=== PATIENT | female | born 1945 | race Caucasian/White ===

== ENCOUNTER 2017-06-20 06:43 | Inpatient (IN) | payer MEDICARE, BC ==
[2017-06-13 09:21] LABS: ABSOLUTE BASOPHILS 0.1 thou/uL (0.0-0.2); ABSOLUTE EOSINOPHILS 0.1 thou/uL (0.0-0.7); ABSOLUTE LYMPHOCYTES 1.2 thou/uL (0.8-5.3); ABSOLUTE MONOCYTES 1.2 thou/uL (0.0-1.2); ABSOLUTE NEUTROPHILS 4.7 thou/uL (1.6-8.1); BASOPHILS 0.8 %; EOSINOPHILS 0.7 %; HEMATOCRIT 40.3 % (37.0-47.0); HEMOGLOBIN 13.2 gm/dL (12.0-15.0); LYMPHOCYTES 16.2 %; MCH 28.6 pg (26.0-34.0); MCHC 32.8 g/dL (28.0-37.0); MCV 87.2 fL (80.0-100.0); MONOCYTES 16.4 %; MPV 7.1 fl. (7.2-11.1); NUCLEATED RBCS 0 /100WBC; PLATELET COUNT* 337 thou/uL (150-400); POLYS 65.9 %; RBC 4.62 mil/uL (4.20-5.00); RDW-CV 13.5 % (10.5-14.5); WBC 7.2 thou/uL (4.0-11.0)
[2017-06-13 09:29] LABS: ALBUMIN 3.9 g/dL (3.4-5.0); CALCIUM 8.8 mg/dL (8.5-10.1); CREATININE 0.5 mg/dL (0.6-1.3); POTASSIUM 4.1 mmol/L (3.5-5.1); TOTAL BILIRUBIN 0.3 mg/dL (<0.1-1.0); TOTAL PROTEIN 7.8 g/dL (6.4-8.2)
[2017-06-13 09:49] LABS: % SATURATION 14 % (20-39); IRON 59 ug/dL (50-175)
[2017-06-13 09:50] LABS: URINE BILIRUBIN NEGATIVE (Negative); URINE BLOOD TRACE (Negative); URINE CLARITY CLEAR; URINE COLOR YELLOW; URINE GLUCOSE-RANDOM NEGATIVE (Negative); URINE KETONES NEGATIVE (Negative); URINE LEUKOCYTES-REFLEX NEGATIVE (Negative); URINE NITRITE-REFLEX NEGATIVE (Negative); URINE PROTEIN NEGATIVE (Negative); URINE SPECIFIC GRAVITY <= 1.005 (1.005-1.030); URINE UROBILINOGEN 0.2 E.U./dl (0.2-1.0)
--- NOTE | 2017-06-13 16:39 | EKG ---
[place] [address] ELECTROCARDIOGRAM REPORT Name: FIONA ALMARAZ Room: PRE IN [facility]#: [id number] Admission: Attend Phys: Tono Cervantes Discharge: Date of : 41 Report #: [id number] THIS REPORT FOR: //name// [facility] Test Date: 2017-06-13 Test Time: 09:28:09 Pat Name: FIONA ALMARAZ Department: Room: Gender: F Inspector Repairer [place]: : 1945 Requested By: Rodrigo Putnam Order Number: [id number] Reading MD: Lupillo Tapia Measurements Intervals [place] Rate: 82 P: 70 RI: 147 QRS: -27 QRSD: 100 T: 8 QT: 363 QTc: 424 Interpretive Statements Sinus rhythm Borderline left axis deviation RSR' in V1 or V2, right VCD or RVH No previous ECG available for comparison Electronically Signed On 06-13-2017 16:39:43 GAS ENGINE MECHANIC by Lupillo Tapia [email or web address] <ELECTRONICALLY SIGNED> By: Lupillo Tapia MD, [facility] 06/13/17 1639 0928 7 Lupillo Tapia MD, FACC /EPI
[~2017-06-20] VITALS: Ht 160 cm; Wt 68.0 kg
[~2017-06-20 06:43] MED LIST: ADVAIR 250-501 EACH INH; ALIGN4 MG PO; CARDIO TEA1 EACH PO; CHOLESTYRAMINE P4 GM PO; COQ-10100 MG PO; GLUCOSAMINE HC500 MG PO; LIALDA1.2 GM PO; MACULAR VITAMI1 EACH PO; MOBIC15 MG PO; NORVASC10 MG PO; OMEPRAZOLE 20 M20 M1 PO; PANTOTHENIC AC500 MG PO; PROLIA60 MG/1 ML SUBQ; SAM-E200 MG PO; THERAGRAN-M PR1 EAC1 PO; VENOFER200 MG/10 IVPB; VITAMIN B-12500 MCG PO; VITAMIN D-32000 UNIT PO; ZYRTEC10 M2 PO
[2017-07-18 07:38] VITALS: BP 155/72
[2017-07-18 12:17] VITALS: BP 149/78
--- NOTE | 2017-07-18 12:54 | NUR ---
PATIENT CAME TO THE FLOOR FROM THE PACU BY BED IN STABLE CONDITION. ADMISSION ASSESSMENT AND EDUCATION DONE WITH QUESTIONS ANSWERED FOR PATIENT AND FAMILY. HAS SOME PAIN IN SURGICAL KNEE, HEMOVAC IS DRAINING WELL. FOOT PUMPS ON AND ENRRIQUE HOSE. IV IN LEFT FOREARM WITH FLUIDS STARTED. CALL LIGHT IS IN REACH, FAMILY IS AT BEDSIDE, WILL CONTINUE TO MONITOR.
[2017-07-18 16:34] VITALS: BP 138/74
--- NOTE | 2017-07-18 16:51 | NUR ---
RECIEVED O.T. EVAL AND TX ORDERS. WILL DEFER TO P.T. AND NURSING AT THIS TIME. PLEASE ORDER FURTHER O.T. SERVICES IF NEEDED.
--- NOTE | 2017-07-18 17:36 | NUR ---
PATIENT IS ALERT AND ORIENTED TODAY VERY PLEASANT. FAMILY AT BEDSIDE TODAY SINCE COMING FROM THE OR. VITAL SIGNS STABLE ON 2 LITERS OF OXYGEN THROUGH NASAL CANNULA WITH CAPNO. SOME PAIN THAT IS MOSTLY CONTROLLED WITH ORAL PAIN MEDICATIONS. IV FLUIDS RUNNING, APPETITE IS GOOD. CALL LIGHT IS IN REACH, FAMILY IS AT BEDSIDE, WILL CONTINUE TO MONITOR.
[2017-07-19 00:20] VITALS: BP 102/45
[2017-07-19 04:27] VITALS: BP 110/52
[2017-07-19 04:52] LABS: ABSOLUTE LYMPHOCYTES 1.5 thou/uL (0.8-5.3); ABSOLUTE MONOCYTES 1.7 thou/uL (0.0-1.2); ABSOLUTE NEUTROPHILS 9.8 thou/uL (1.6-8.1); BASOPHILS 0.2 %; HEMATOCRIT 31.4 % (37.0-47.0); HEMOGLOBIN 10.4 gm/dL (12.0-15.0); LYMPHOCYTES 11.4 %; MCH 28.5 pg (26.0-34.0); MCV 86.2 fL (80.0-100.0); MPV 7.4 fl. (7.2-11.1); NUCLEATED RBCS 0 /100WBC; PLATELET COUNT* 284 thou/uL (150-400); POLYS 75.4 %; RBC 3.64 mil/uL (4.20-5.00); RDW-CV 14.3 % (10.5-14.5); WBC 12.9 thou/uL (4.0-11.0)
[2017-07-19 04:56] LABS: CALCIUM 7.4 mg/dL (8.5-10.1); CREATININE 0.6 mg/dL (0.6-1.3); POTASSIUM 3.9 mmol/L (3.5-5.1)
--- NOTE | 2017-07-19 06:47 | NUR ---
PATIENT IS ALERT AND ORIENTED X 4. VSS ON 2L 02 VIA NASAL CANNULA. PATIENT HAS HAD INCREASED PAIN WHEN MOVING LEG TO GET ON BED. PATIENT PUT ON CPM THIS AM. PAIN MEDICATION GIVEN ORDERED AND CHARTED. DRESSING TO LEFT KNEE IS C/D/I AND SCD'S, AND POLAR CARE IN PLACE. IV IN LEFT FOREARM-SL. PATIENT INSTRUCTED TO USE CALL LIGHT WHEN NEEDING ASSISTANCE. HOURLY ROUNDS MADE. WILL CONTINUE WITH PLAN OF CARE AND NURSING TO MONITOR.
[2017-07-19 10:24] VITALS: BP 138/59
--- NOTE | 2017-07-19 14:03 | NUR ---
PATIENT IS ALERT AND ORIENTED TODAY VITAL SIGNS STABLE ON ROOM AIR, FAMILY AT BEDSIDE TODAY. PAIN THAT IS SOMEWHAT CONTROLLED BY ORAL PAIN MEDICATIONS BUT HAS SOME NAUSEA WELL. CALL LIGHT IS IN REACH, BED ALARM ON, FREQUENT CHECKS. WILL CONTINUE TO MONITOR.
[2017-07-19 16:00] VITALS: BP 142/73
--- NOTE | 2017-07-19 17:32 | NUR ---
SPOKE WITH PT.AND . PT.STATED SHE HAS HAD ALOT OF PAIN TODAY. SHE SAID SHE IS TRYING HER 3RD PAIN PILL BECAUSE THE OTHERS MAKE HER VOMIT. SHE LIVES WITH HER WHO WILL BE WITH HER AT HOME. SHE HAS A WALKER. SHE WANTS TO USE [facility] FOR HOME HEALTH HER SON IN LAW IS THE PHOTOGRAPHIC PRINTER THERE. HER PHARMACY IS [facility] ON [address] IN [facility] [place]. CM CALLED IN PRESCRIPTION WRITTEN TO HER PHARMACY. WILL CHECK COPAY IN AM. PT.IS NORMALLY INDEPENDENT AT HOME. MAY NOT BE READY FOR DISCHARGE TOMORROW DUE TO POOR PAIN CONTROL TODAY.
[2017-07-19 17:36] VITALS: BP 142/73
--- NOTE | 2017-07-19 18:20 | NUR ---
RECIEVED REPORT FROM DAMIÁN AT 1500 AND TOOK OVER CARE OF PATIENT. SHE REMAINED ALERT AND ORIENTED X'S 4. VITAL SIGNS AND SPO2 STABLE. IV CLEAN, FLUSHING FLUIDS. PAIN CONTROLLED WITH PAIN MEDS. HAD A BOUT OF NAUSEA, GAVE ZOFRAN, NAUSEA SUBSIDED. DRESSING OVER KNEE CLEAN, DRY, INTACT. TEDS, SCD'S, POLAR CARE IN PLACE. PATIENT SEEMS TO PLAY UP HER LEVEL OF PAIN, IT'S WORSE WHEN HER IS WITH HER. VOIDED WITHOUT ISSUE. COMPLETED HOURLY ROUNDING. CALL LIGHT WITHIN REACH. WILL CONTINUE TO MONITOR.
[2017-07-19 20:45] VITALS: BP 137/63
[2017-07-20 00:06] VITALS: BP 124/60
[2017-07-20 04:00] VITALS: BP 100/52
[2017-07-20 04:06] LABS: ABSOLUTE BASOPHILS 0.1 thou/uL (0.0-0.2); ABSOLUTE EOSINOPHILS 0.1 thou/uL (0.0-0.7); ABSOLUTE LYMPHOCYTES 1.7 thou/uL (0.8-5.3); ABSOLUTE MONOCYTES 1.7 thou/uL (0.0-1.2); ABSOLUTE NEUTROPHILS 8.1 thou/uL (1.6-8.1); BASOPHILS 0.5 %; EOSINOPHILS 0.5 %; HEMATOCRIT 29.2 % (37.0-47.0); HEMOGLOBIN 9.9 gm/dL (12.0-15.0); LYMPHOCYTES 14.9 %; MCHC 34.1 g/dL (28.0-37.0); MONOCYTES 14.7 %; MPV 7.2 fl. (7.2-11.1); NUCLEATED RBCS 0 /100WBC; PLATELET COUNT* 271 thou/uL (150-400); POLYS 69.4 %; RBC 3.43 mil/uL (4.20-5.00); RDW-CV 14.3 % (10.5-14.5); WBC 11.7 thou/uL (4.0-11.0)
[2017-07-20 04:33] LABS: CALCIUM 7.3 mg/dL (8.5-10.1); CREATININE 0.6 mg/dL (0.6-1.3); POTASSIUM 3.2 mmol/L (3.5-5.1)
--- NOTE | 2017-07-20 04:55 | NUR ---
PATIENT ALERT AND ORIENTED. RA. VITALS STABLE. PAIN CONTROLLED WITH PO MEDICATION. UP WITH ASSIST X 2. WBAT. LEFT KNEE DRESSING C/D/I. DENIES PAIN. POLAR PACK IN PLACE. HOURLY ROUNDS. BED ALARM IN USE. NURSING WILL CONTINUE TO MONITOR.
--- NOTE | 2017-07-20 12:16 | NUR ---
CM WAS INFORMED BY THE RN IN-STANLEY OF THE PATIENT THAT THE PATIENT AND HER WOULD LIKE FOR THE PATIENT TO GO TO SKILLED AT D/C. CM SPOKE TO THE PATIENT AND HER DTR AND THEY INFORM THAT THEY WERE INTERESTED IN SKILLED AT [facility]. CM SPOKE TO UMER DIALLO WITH ADMISSIONS AT [facility] TO INFORM OF THE REFERRAL FOR SKILLED AND FAXED THE PATIENTS FACESHEET, H&P, AND PT NOTES. CM AWAITING RETURN CALL TO INFORM OF ABILIY TO ACCEPT THE PATIENT AT D/C. CM WILL REMAIN AVAILABLE TO ASSIST AND FOLLOW NEEDED. [facility] PHONE: [phone] FAX: [phone]
--- NOTE | 2017-07-20 12:50 | S ---
[address] [address] SURGICAL PATH RPT PROCEDURE Name: FIONA AGUERO Room: [address] IN [facility].#: [id number] Admission: 07/18/17 Date of : 41 Discharge: Report #: [id number] Path Case #: [id number] PATHOLOGY REPORT COLLECTION DATE: 07/18/2017 RECEIVED DATE: 07/18/2017 SUBMITTING PHYS: Dr. Rodrigo Putnam II OTHER PHYS: Dr. Andrea Gates SPECIMEN(S) RECEIVED: A.Bone and tissue left knee * * * * * * * * * * * * FINAL DIAGNOSIS: Bone and tissue left knee: - Benign meniscus and synovium and benign bone and cartilage with severe degenerative changes. (CHRISTINE:mgr; 07/20/2017) PATHOLOGIST: Eladio Lock M.D. REPORT ELECTRONICALLY SIGNED BY: Eladio Lock M.D. DATE/TIME: 07/20/2017 12:49 * * * * * * * * * * * * GROSS PATHOLOGY: Received in formalin labeled "Fiona Aguero, bone and tissue left knee," are multiple segments of bone, including tibial plateau, measuring 12.1 x 11.5 x 2.3 cm in aggregate dimensions admixed with soft tissue; meniscus is present. The specimen shows focal eburnation of the articular surfaces. [employer]er sections of bone and soft tissue are submitted in cassette A1, following decalcification. (DAC; 07/19/2017) CLINICAL HISTORY: Left knee degenerative joint disease INITIAL CPT CODE(S): A; 58732, 84229 Professional services performed by [facility] at [facility], [address] [place] [address] , [place] [address]. Technical services performed by [facility] at [address] [place] [address], [facility] [address] [address]. [place] [id number] SURGICAL PATH RPT PROCEDURE Name: FIONA AGUERO Room: [address] IN [facility].#: [id number] Admission: 07/18/17 Date of : 41 Discharge: Report #: [id number] Path Case #: [id number] [facility] [address] [address] PHONE: [phone] DIRECTOR: Teddy Galicia M.D. * * * END OF REPORT * * *
[2017-07-20 15:54] VITALS: BP 104/61
--- NOTE | 2017-07-20 17:36 | NUR ---
PATIENT IS ALERT AND ORIENTED TODAY VERY PLEASANT. HAS NOT BEEN UP OUT OF BED MUCH TODAY EVEN WITH ENCOURAGEMENT. PAIN IS WELL CONTROLLED TODAY. FAMILY HAS BEEN BEDSIDE MOST OF THE DAY. VTIAL SIGNS STABLE ON ROOM AIR. CALL LIGHT IS IN REACH AND BED ALARM IS ON PLACE. WILL CONTINUE TO MONITOR.
[2017-07-20 20:15] VITALS: BP 136/54
[2017-07-21 00:02] VITALS: BP 118/49
[2017-07-21 03:47] VITALS: BP 127/60
[2017-07-21 04:36] LABS: HEMATOCRIT 30.1 % (37.0-47.0); HEMOGLOBIN 10.2 gm/dL (12.0-15.0); MCH 28.8 pg (26.0-34.0); MCHC 33.8 g/dL (28.0-37.0); MCV 85.4 fL (80.0-100.0); MPV 7.4 fl. (7.2-11.1); NUCLEATED RBCS 0 /100WBC; PLATELET COUNT* 294 thou/uL (150-400); RBC 3.53 mil/uL (4.20-5.00); RDW-CV 13.7 % (10.5-14.5); WBC 11.8 thou/uL (4.0-11.0)
[2017-07-21 04:47] LABS: CALCIUM 7.6 mg/dL (8.5-10.1); CREATININE 0.6 mg/dL (0.6-1.3); POTASSIUM 4.4 mmol/L (3.5-5.1)
[2017-07-21 06:45] LABS: ABSOLUTE EOSINOPHILS 0.1 thou/uL (0.0-0.7); ABSOLUTE LYMPHOCYTES 1.8 thou/uL (0.8-5.3); ABSOLUTE MONOCYTES 1.5 thou/uL (0.0-1.2); ABSOLUTE NEUTROPHILS 8.4 thou/uL (1.6-8.1); PLATELET ESTIMATE ADEQUATE
--- NOTE | 2017-07-21 07:50 | NUR ---
PATIENT ALERT AND ORIENTED. VITALS STABLE. RA. PAIN CONTROLLED WITH PO MEDICATION. PATIENT REPORTS VOMITTING X 1. ZOFRAN GIVEN, EFFECTIVE. LEFT KNEE DRESSING C/D/I. UP WITH ASSIST X 1 TO BATHROOM. CURRENTLY IN CPM AT 60 DEGREES. HOURLY ROUNDS. NURSING WILL CONTINUE TO MONITOR.
[2017-07-21 08:24] VITALS: BP 99/55
--- NOTE | 2017-07-21 11:30 | NUR ---
PT.NOT BEING DISCHARGED TODAY. NOTIFIED DAUGHTER,KERLINE AND UMER RICKETTS AT [facility]. UMER SAID IF CALLS HER AFTER LAB RESULTS SHE COULD SET UP DISCHARGE FOR TOMORROW. WILL INFORM PT.AND .
--- NOTE | 2017-07-21 12:36 | NUR ---
Pt requested to see RD for help making meal selections d/t dietary restrictions. Pt has followed FODMAP diet for 5 years and was having issues communicating with kitchen appropriate meal choices. RD adressed problems and was able to work through issues with pt and provide kitchen with meal selections until pt is d/c. Low nutrition risk.
[2017-07-21 16:00] VITALS: BP 116/58
[2017-07-21 16:30] LABS: CALCIUM 7.5 mg/dL (8.5-10.1); CREATININE 0.6 mg/dL (0.6-1.3); POTASSIUM 4.3 mmol/L (3.5-5.1)
--- NOTE | 2017-07-21 16:47 | NUR ---
ASSUMED CARE OF PATIENT AFTER MORNING REPORT. ALERT AND ORIENTED X4. ASSESSMENT COMPLETED AND CHARTED. VSS ON ROOM AIR. PATIENT HAD NO COMPLAINTS OF NAUSEA THIS SHIFT. PAIN HAS BEEN MANAGED WITH PAIN MEDICATION. PATIENT WORKED WITH THERAPY AND HAS PROGRESSED SLOWLY. ENCOURAGEMENT NEEDED TO USE OPERATIVE LEG WHEN STANDING AND WALKING. PATIENT SHOULD BE READY FOR DISCHARGE TO [facility] FAC[facility] TOMORROW. HOURLY ROUNDS HAVE BEEN MAINTAINED. CALL LIGHT IS WITHIN REACH. NURSING WILL CONTINUE TO MONITOR.
[2017-07-21 22:45] VITALS: BP 113/55
[2017-07-22 00:10] VITALS: BP 98/46
[2017-07-22 04:30] VITALS: BP 128/49
[2017-07-22 05:22] LABS: CREATININE 0.6 mg/dL (0.6-1.3)
[2017-07-22 08:00] VITALS: BP 115/49
--- NOTE | 2017-07-22 09:05 | NUR ---
ALERT AND ORIENTED. LEFT KNEE DRESSING DRY AND INTACT. POLAR CARE IN PLACE. IVF INFUSING WITHOUT DIFFICULTY. RESTED QUIETLY IN BED ALL NIGHT. PATIENT CURRENTLY IN CPM. PAIN MEDICATION GIVEN X2 AND HELPFUL. CALL LIGHT WITHIN REACH.
--- NOTE | 2017-07-22 13:00 | NUR ---
PT.NOT READY FOR DISCHARGE TODAY. NOTIFIED PEG/CHARGE NURSE AT [facility]. SHE SAID THEY WOULD HOLD BED FOR PT.OVERNIGHT. AGAIN SINCE IT IS THE WEEKEND IF DISCHARGED TOMORROW, WILL NEED TO BE IN FACILITY BY 2PM. IF DISCHARGED CALL [phone] AND ASK FOR CHARGE NURSE. FAX ORDERS TO [phone]. [facility] [place] [employer] [phone].
[2017-07-22 16:00] VITALS: BP 118/62
--- NOTE | 2017-07-22 17:33 | NUR ---
ASSUMED CARE OF PATIENT AFTER REPORT THIS MORNING. PATIENT AWAKE, ALERT, AND ORIENTED APPROPRIATELY. PHYSICAL ASSESSMENT COMPLETED AND CHARTED. COMPLAINED OF PAIN THIS SHIFT. GIVEN PRN AND SCHEDULED MEDICATIONS, SEE EMAR FOR DOCUMENTATION. VITAL SIGNS STABLE. OXYGEN SATURATION WITHIN NORMAL LIMITS ON ROOM AIR. PATIENT TRANSFERS AND AMBULATES WITH ASSISTANCE FROM STAFF. WORKED WITH PHYSICAL THERAPY AND SAT IN CHAIR AT BEDSIDE THIS AFTERNOON. HAS USED CPM THIS DAY. IS BACK IN BED AT THIS TIME. USES CALL LIGHT APPROPRIATELY, WITHIN REACH. DENIES NEEDS AT THIS TIME. NURSING WILL CONTINUE TO MONITOR.
[2017-07-22 20:00] VITALS: BP 124/84
[2017-07-23 04:06] VITALS: BP 141/58
[2017-07-23 04:24] LABS: HEMATOCRIT 27.4 % (37.0-47.0); HEMOGLOBIN 9.2 gm/dL (12.0-15.0); MCH 28.8 pg (26.0-34.0); MCHC 33.5 g/dL (28.0-37.0); MCV 86.2 fL (80.0-100.0); MPV 7.8 fl. (7.2-11.1); RBC 3.18 mil/uL (4.20-5.00); RDW-CV 13.9 % (10.5-14.5); WBC 9.8 thou/uL (4.0-11.0)
--- NOTE | 2017-07-23 04:39 | NUR ---
PATIENT ORIENTED X4 ON HOURLY ROUNDS. UP WITH ASSIST X1 TO BSC. MEDICATED FOR PAIN WITH OXY IR, DENIES NAUSEA. DRESSING TO LEFT KNEE CLEAN, DRY AND INTACT WITH POLAR CARE IN PLACE. VITALS STABLE ON ROOM AIR. WILL CONTINUE TO MONITOR.
[2017-07-23 04:49] LABS: ALBUMIN 2.3 g/dL (3.4-5.0); CALCIUM 7.4 mg/dL (8.5-10.1); CREATININE 0.5 mg/dL (0.6-1.3); POTASSIUM 4.7 mmol/L (3.5-5.1); TOTAL BILIRUBIN 0.4 mg/dL (<0.1-1.0); TOTAL PROTEIN 5.2 g/dL (6.4-8.2)
[2017-07-23 07:43] VITALS: BP 139/66
[2017-07-23] MEDS ORDERED: REGLAN 10 MG TA10 MG PO ×2 (11:23→11:25)
[2017-07-23] MEDS ORDERED: PERCOCET PO (11:26)
[2017-07-23] MEDS ORDERED: XARELTO10 MG PO (11:27)
[2017-07-23] MEDS ORDERED: METAMUCIL1 EAC1 PO (13:50)
[2017-07-23] MEDS ORDERED: CALCIUM 500 +1 EAC5 PO (13:50)
[2017-07-23] MEDS ORDERED: COLACE100 MG PO (13:50)
[2017-07-23] MEDS ORDERED: MILK OF MA2400 MG/10 PO (13:51)
--- NOTE | 2017-07-23 14:22 | NUR ---
ASSUMED CARE OF PATIENT AFTER REPORT THIS MORNING. PATIENT AWAKE, ALERT, AND ORIENTED APPROPRIATELY. PHYSICAL ASSESSMENT COMPLETED AND CHARTED. COMPLAINED OF PAIN THIS SHIFT. GIVEN PRN AND SCHEDULED MEDICATIONS, SEE EMAR FOR DOCUMENTATION. VITAL SIGNS STABLE. OXYGEN SATURATION WITHIN NORMAL LIMITS ON ROOM AIR. PATIENT TRANSFERS AND AMBULATES WITH ASSISTANCE FROM STAFF. USES BEDIDE COMMODE. WORKED WITH PHYSICAL THERAPY TODAY ONCE. RECEIVED ORDERS TO DISCHARGE PATIENT AT 1340. SPOKE WITH GATITO AT [facility] AND THEY SAID THEY WOULD BE ABLE TO ACCEPT PATIENT AT LATER TIME. TRANSPORTATION SET UP FOR 1500. [facility] AWARE. DISCHARGE PAPERWORK COMPLETED AND SIGNED BY ALL APPROPRIATE PARTIES, ON PATIENT'S CHART. CHART COPIED AND READY TO BE SENT WITH PATIENT TO [facility]. IV DISCONTINUED. PATIENT AND FAMILY AWARE OF DISCHARGE. AWAITING TRANSPORTATION FOR PATIENT TO [facility]. NURSING WILL CONTINUE TO MONITOR.
--- NOTE | 2017-07-23 15:26 | NUR ---
REPORT CALLED AND GIVEN TO GATITO AT [facility]. PATIENT GIVEN PAIN MEDICATION PRIOR TO DISCHARGE. DISCHARGED AT 1525.
--- NOTE | 2017-07-25 08:34 | OP ---
[address] [address] OPERATIVE REPORT Name: FIONA ALMARAZ Room: [address]#: [id number] Admission: 07/18/17 Attend Phys: Tono Cervantes Discharge: 07/23/17 Date of : 41 Report #: [id number] THIS REPORT FOR: //name// CC: Justin Anna DATE OF SERVICE: 07/18/2017 PREOPERATIVE DIAGNOSIS: Left knee osteoarthritis. POSTOPERATIVE DIAGNOSIS: Left knee osteoarthritis. PROCEDURE: Left total knee arthroplasty with Navio. SURGEON: Rodrigo Putnam II, DO. INTERVENTIONAL SALE CONSULTANT: CHANTELLE Sloan. ANESTHESIA: Per operative record. ESTIMATED BLOOD LOSS: 50 mL. ANTIBIOTICS: Per operative record. DRAINS: Hemovac. COMPLICATIONS: None. CONDITION OF PATIENT: Stable to recovery room. IMPLANT SIZE: Listed in progress note and operative record. BRIEF HISTORY: The patient is seen in the preoperative area. Preop H and P was performed. The patient failed conservative management. Discussed all risks and benefits of surgery. She would like to proceed and assumed all risks. DESCRIPTION OF PROCEDURE: The patient was taken to the operative suite, placed supine on the operating table, given appropriate anesthesia. The patient's left knee was placed in a well-padded tourniquet applied to the upper thigh, which was inflated to 300 mmHg after gravity exsanguination for the duration of procedure. A sterile prep and drape was performed. Surgery began by midline incision on the knee, carried down to subcutaneous tissues. A medial parapatellar arthrotomy was performed and carried down to bone. The patella was then everted and excess soft tissues and osteophytes removed from around the femur and tibia. At this time, the tracker pin was then placed in [place] [address] OPERATIVE REPORT Name: FIONA ALMARAZ Room: [address] IN [facility]#: [id number] Admission: 07/18/17 Attend Phys: Tono Cervantes Discharge: 07/23/17 Date of : 41 Report #: [id number] tibia in appropriate fashion utilizing double barrel guide. The knee was then registered throughout range of motion, was appropriate for the Navio robotic assistance. The robot was then activated and appropriate bur holes were then placed throughout the femur and tibia in line with the preoperative planning. Femoral cutting block was then applied to the femur, checked for rotational alignment and cut depth. The appropriate cut was then made. Excess bone was removed. The femoral cutting block was then sized, applied, checked for rotation alignment and appropriate position and appropriate cuts were made. Bones were then removed from the cut sites and irrigation then performed. Attention was then turned to the tibia. The tibial cutting block was applied. We checked for rotation alignment and slope in appropriate position. Appropriate cut was made. Excess bone was removed utilizing a rongeur and electrocautery as well as excess meniscus. Tibial base plate was then applied and checked for rotation alignment and appropriate position. Reamer was then applied and box cut was reamed. It was then trialed. A trial spacer was then taken into full flexion and extension, showed excellent range of motion, excellent stability of the knee. Patella was then reamed in appropriate fashion. Three peg holes were drilled. It was then trialed and shown to have excellent flexion and extension of the knee with excellent tracking of the patella in the groove. Trial was then removed. The tibia was then punched in appropriate fashion. Bone ends were cleaned with Pulsavac irrigation, and cement was mixed and applied to the final implants. These were malleted in position, held with compression across the joint to allow the cement to cure. Tracker pin was then removed at this time. Nylon was utilized to close these small incisions. After cement had cured, excess was removed utilizing Gaston and osteotome. The final spacer was then selected and malleted in position, shown to have excellent fit and fill and excellent stability of knee throughout all range of motion. Wound was then cleansed with Pulsavac irrigation. The pain cocktail was injected. PRP gel was sprayed throughout the internal aspect of the knee, and her tourniquet was deflated, and hemostasis was obtained with electrocautery. Medium Hemovac drain was then applied. Capsule was then closed with 1 Vicryl and a FiberWire stitch in [id number] fashion. Skin was closed with 2-0 Vicryl and a running Monocryl stitch. Dermabond dressing was applied. The patient transferred to recovery room in stable condition. Counts were correct throughout the procedure. <ELECTRONICALLY SIGNED> By: Rodrigo Putnam II, DO 07/25/17 0834 0800 [id number] Putnam II, DO /nt
== END 2017-07-23 15:25 | DRG 470 ==
LOC: M.PRE 06:43 → M.ORTHSURG 07-18 07:03 → M.TBA 07-18 07:03 → M.PRE 07-18 08:58 → M.ORTHSURG 07-18 12:00 → M.PRE 07-18 15:00 → M.ORTHSURG 07-23 15:25
PROVIDERS: Family Medicine; Orthopaedic Surgery; ADMIT Internal Medicine
PROC: 0SRD0J9 Replacement of Left Knee Joint with Synthetic Substitute, Cemented, Open Approach (ICD-10-PCS; principal; 2017-07-18)
DX: M17.12 Unilateral primary osteoarthritis, left knee (principal); K50.90 Crohn's disease, unspecified, without complications; I10 Essential (primary) hypertension; J45.909 Unspecified asthma, uncomplicated; K90.0 Celiac disease; D64.9 Anemia, unspecified; Z79.899 Other long term (current) drug therapy; E83.51 Hypocalcemia; Z88.0 Allergy status to penicillin; Z88.2 Allergy status to sulfonamides; Z88.8 Allergy status to other drugs, medicaments and biological substances; Z88.6 Allergy status to analgesic agent; Z91.040 Latex allergy status; Z90.49 Acquired absence of other specified parts of digestive tract; Z90.710 Acquired absence of both cervix and uterus; Z98.42 Cataract extraction status, left eye; Z98.41 Cataract extraction status, right eye